=== PATIENT | female | born 1960 | race Hispanic/Latino ===

== ENCOUNTER 2019-07-05 05:10 | Emergency (ER) | payer SELFPAY ==
[2019-07-05 05:24] VITALS: BP 135/75
[2019-07-05] MEDS ORDERED: ACETAMINOPHEN 500 MG TAB PO ONE (06:38)
--- NOTE | 2019-07-05 06:43 | Emergency Department Report ---
[facility] Chief Complaint: Eye Problems Stated Complaint: RT EYE IRRITATION Severity: moderate Symptoms: Yes Eye Itching, Yes Eye Redness, Yes Eye Pain, Yes Mucous Drainage, Yes Purulent Drainage, Yes H/O Allergic Rhinitis, No Blurred Vision (photophobia ), No Preceding URI, No Contact Lens Use, No Trauma, No Fever, No Headache Other History: pt state pink eye x 1 week, not improved with otc eye drops, now with photophobia, pt denies fall injury or trauma, pt has hx of conjuntivitis similar is this episode in past. ED Review of Systems ROS: Stated complaint: RT EYE IRRITATION Other details as noted in HPI Constitutional: denies: chills, fever Eyes: eye pain, eye discharge. denies: vision change ENT: denies: ear pain, throat pain, congestion Respiratory: denies: cough, shortness of breath, wheezing Cardiovascular: as per HPI Endocrine: no symptoms reported Gastrointestinal: denies: abdominal pain, nausea, diarrhea Genitourinary: denies: urgency, dysuria, discharge Musculoskeletal: denies: back pain, joint swelling, arthralgia Skin: denies: rash, lesions Neurological: denies: headache, weakness, paresthesias Psychiatric: denies: anxiety, depression Hematological/Lymphatic: denies: easy bleeding, easy bruising ED Past Medical Hx - Past Medical History Previous Medical History?: No - Surgical History Additional Surgical History: Broken nose repair, Right thumb repair - Social History Smoking Status: Current Every Day Smoker Substance Use Type: None - Medications Home Medications: Home Medications Medication Instructions Recorded Confirmed Last Taken Type cephALEXin [Keflex] 500 mg PO BID #20 capsule 06/22/13 06/28/13 Unknown Rx Ibuprofen [Motrin 800 MG tab] 800 mg PO TID PRN #25 tablet 01/19/16 Unknown Rx Sulfamethoxazole/Trimethoprim 1 each PO BID #20 tablet 01/19/16 Unknown Rx [Bactrim DS TAB] traMADol [Ultram] 50 mg PO Q6HR PRN #20 tablet 01/19/16 Unknown Rx Acetaminophen [Acetaminophen TAB] 1,000 mg PO Q6HR PRN #30 tablet 07/05/19 Unknown Rx Ketotifen Fumarate [Zaditor] 1 drop OP BID #5 ml 07/05/19 Unknown Rx Ofloxacin 0.3% [Ocuflox 0.3% opth] 2 drops OP Q3HR #1 bottle 07/05/19 Unknown Rx [facility] Exam - Exam General: Vital signs noted. No distress. Alert and acting appropriately. Eye Exam: Right Injection, Right Mucous Discharge, Right Purulent Discharge, Right Photophobia, Both EOMI, Neither Chemosis, Neither Abnormal Pupil, Neither Eye Foreign Body, Neither Lid Foreign Body HEENT: No Nasal Congestion, No Pharyngeal Erythema Remainder of HEENT: Normal Lungs: Yes Clear Lung Sounds, Yes Good Air Exchange, No Wheezes, No Stridor, No Cough, No Nasal Flaring, No Retractions, No Use of Accessory Muscles ED Course Vital Signs 07/05/19 05:15 Temperature 98.2 F Pulse Rate 107 H Respiratory 18 Rate Blood Pressure 135/75 O2 Sat by Pulse 97 Oximetry ED Medical Decision Making - Medical Decision Making eye irrigated with 10 cc sterile saline noted purulent drainage, tetracaine drop x 2, pain is relieved , plan, cipro ophthal, zaditor, tylenol, follow up with ophthalmology today or tomorrow, pt verbalized agreement and understanding of same. pt for dc to home in stable condition at this time. Critical care attestation.: If time is entered above; I have spent that time in minutes in the direct care of this critically ill patient, excluding procedure time. ED Disposition Clinical Impression: Conjunctivitis Qualifiers: Conjunctivitis type: acute Acute conjunctivitis type: bacterial Laterality: right Qualified Code(s): H10.31 - Unspecified acute conjunctivitis, right eye Disposition: DC-01 TO HOME OR SELFCARE Is pt being admited?: No Does the pt Need Aspirin: No Condition: Stable Instructions: Conjunctivitis (ED) Prescriptions: Acetaminophen [Acetaminophen TAB] 1,000 mg PO Q6HR PRN #30 tablet PRN Reason: pain Ofloxacin 0.3% [Ocuflox 0.3% opth] 2 drops OP Q3HR #1 bottle Ketotifen Fumarate [Zaditor] 1 drop OP BID #5 ml Referrals: TRISTEN RAIN MD [Primary Care Provider] - 3-5 Days MOOSE BAZZI MD [Staff Physician] - 3-5 Days Forms: Work/School Release Form(ED) Time of Disposition: 06:50
== END 2019-07-05 07:00 | disposition home or self-care (01) ==
LOC: ED 05:10
DX: H10.9 Unspecified conjunctivitis (principal); F17.200 Nicotine dependence, unspecified, uncomplicated; Z98.890 Other specified postprocedural states; Z79.899 Other long term (current) drug therapy

== ENCOUNTER 2019-11-01 06:38 | Emergency (ER) | payer SELFPAY ==
[2019-11-01 06:43] VITALS: BP 167/75
--- NOTE | 2019-11-01 09:43 | Emergency Department Report ---
- General Chief complaint: Animal Bite Stated complaint: POSS INSECT BITE Time Seen by Provider: 11/01/19 09:34 Source: patient Mode of arrival: Ambulatory Limitations: No Limitations - History of Present Illness MD complaint: insect bite/sting, discoloration -: Gradual, days(s) (5) Location: R[facility] Severity: mild, moderate Consistency: constant Improves with: none Worsens with: none Associated symptoms: denies other symptoms Treatments Prior to Arrival: none - Related Data Previous Rx's Medication Instructions Recorded Last Taken Type cephALEXin [Keflex] 500 mg PO BID #20 capsule 06/22/13 Unknown Rx Ibuprofen [Motrin 800 MG tab] 800 mg PO TID PRN #25 tablet 01/19/16 Unknown Rx Sulfamethoxazole/Trimethoprim 1 each PO BID #20 tablet 01/19/16 Unknown Rx [Bactrim DS TAB] traMADoL [Ultram] 50 mg PO Q6HR PRN #20 tablet 01/19/16 Unknown Rx Acetaminophen [Acetaminophen TAB] 1,000 mg PO Q6HR PRN #30 tablet 07/05/19 Unk nown Rx Ketotifen Fumarate [Zaditor] 1 drop OP BID #5 ml 07/05/19 Unknown Rx Ofloxacin 0.3% [Ocuflox 0.3% opth] 2 drops OP Q3HR #1 bottle 07/05/19 Unknown Rx Mupirocin [Bactroban 2%] 1 applic TP TID #1 tube 11/01/19 Unknown Rx Sulfamethoxazole/Trimethoprim 1 each PO BID #20 tablet 11/01/19 Unknown Rx [Bactrim DS TAB] cephALEXin [Keflex] 500 mg PO Q6HR #40 capsule 11/01/19 Unknown Rx Allergies Allergy/AdvReac Type Severity Reaction Status Date / Time No Known Allergies Allergy Unverified 06/28/13 07:15 Abscess Boil HPI - HPI Chief Complaint: Animal Bite Stated Complaint: POSS INSECT BITE Time Seen by Provider: 11/01/19 09:34 History: Yes Insect Bite (Suspects spider bite) HPI: 59-year-old female with a swelling to the right lower extremity with mild pain and a wound with no drainage presents emergency department for further evaluation and treatment options. No no treatment [id number] was attempted reports no fever chills or sweats no chest pain palpitations no nausea or vomiting no abdominal pain Home Medications: Previous Rx's Medication Instructions Recorded Last Taken Type cephALEXin [Keflex] 500 mg PO BID #20 capsule 06/22/13 Unknown Rx Ibuprofen [Motrin 800 MG tab] 800 mg PO TID PRN #25 tablet 01/19/16 Unknown Rx Sulfamethoxazole/Trimethoprim 1 each PO BID #20 tablet 01/19/16 Unknown Rx [Bactrim DS TAB] traMADoL [Ultram] 50 mg PO Q6HR PRN #20 tablet 01/19/16 Unknown Rx Acetaminophen [Acetaminophen TAB] 1,000 mg PO Q6HR PRN #30 tablet 07/05/19 Unknown Rx Ketotifen Fumarate [Zaditor] 1 drop OP BID #5 ml 07/05/19 Unknown Rx Ofloxacin 0.3% [Ocuflox 0.3% opth] 2 drops OP Q3HR #1 bottle 07/05/19 Unknown Rx Mupirocin [Bactroban 2%] 1 applic TP TID #1 tube 11/01/19 Unknown Rx Sulfamethoxazole/Trimethoprim 1 each PO BID #20 tablet 11/01/19 Unknown Rx [Bactrim DS TAB] cephALEXin [Keflex] 500 mg PO Q6HR #40 capsule 11/01/19 Unknown Rx Allergies/Adverse Reactions: Allergies Allergy/AdvReac Type Severity Reaction Status Date / Time No Known Allergies Allergy Unverified 06/28/13 07:15 ED Review of Systems ROS: Stated complaint: POSS INSECT BITE Other details as noted in HPI ED Past Medical Hx - Past Medical History Previous Medical History?: No - Surgical History Past Surgical History?: Yes Additional Surgical History: Broken nose repair, Right thumb repair - Social History Smoking Status: Current Every Day Smoker - Medications Home Medications: Home Medications Medication Instructions Recorded Confirmed Last Taken Type cephALEXin [Keflex] 500 mg PO BID #20 capsule 06/22/13 06/28/13 Unknown Rx Ibuprofen [Motrin 800 MG tab] 800 mg PO TID PRN #25 tablet 01/19/16 Unknown Rx Sulfamethoxazole/Trimethoprim 1 each PO BID #20 tablet 01/19/16 Unknown Rx [Bactrim DS TAB] traMADoL [Ultram] 50 mg PO Q6HR PRN #20 tablet 01/19/16 Unknown Rx Acetaminophen [Acetaminophen TAB] 1,000 mg PO Q6HR PRN #30 tablet 07/05/19 Unknown Rx Ketotifen Fumarate [Zaditor] 1 drop OP BID #5 ml 07/05/19 Unknown Rx Ofloxacin 0.3% [Ocuflox 0.3% opth] 2 drops OP Q3HR #1 bottle 07/05/19 Unknown Rx Mupirocin [Bactroban 2%] 1 applic TP TID #1 tube 11/01/19 Unknown Rx Sulfamethoxazole/Trimethoprim 1 each PO BID #20 tablet 11/01/19 Unknown Rx [Bactrim DS TAB] cephALEXin [Keflex] 500 mg PO Q6HR #40 capsule 11/01/19 Unknown Rx ED Physical Exam - General Limitations: No Limitations General appearance: alert, in no apparent distress - Head Head exam: Present: atraumatic, normocephalic - Eye Eye exam: Present: normal appearance, PERRL, EOMI - ENT ENT exam: Present: mucous membranes moist - Neck Neck exam: Present: normal inspection - Respiratory Respiratory exam: Present: normal lung sounds bilaterally. Absent: respiratory distress - Cardiovascular Cardiovascular Exam: Present: regular rate, normal rhythm. Absent: systolic murmur, diastolic murmur, rubs, gallop - GI/Abdominal GI/Abdominal exam: Present: soft, normal bowel sounds - Extremities Exam Extremities exam: Present: normal inspection, tenderness. Absent: pedal edema, calf tenderness - Expanded Lower Extremity Exam Right Lower Leg exam: Present: tenderness, swelling, ecchymosis, erythema. Absent: Gurmeet's sign Neuro vascular tendon exam: Present: no vascular compromise 1 - Wound 2.5 cm in diameter with circumferential cellulitis noted pulses 2+ capillary refill is brisk - Back Exam Back exam: Present: normal inspection - Neurological Exam Neurological exam: Present: alert, oriented X3 - Psychiatric Psychiatric exam: Present: normal affect, normal mood - Skin Skin exam: Present: warm, dry, intact, normal color. Absent: rash ED Course Vital Signs 11/01/19 06:42 Temperature 98.0 F Pulse Rate 109 H Respiratory 16 Rate Blood Pressure 167/75 O2 Sat by Pulse 97 Oximetry Critical care attestation.: If time is entered above; I have spent that time in minutes in the direct care of this critically ill patient, excluding procedure time. ED Disposition Clinical Impression: Cellulitis of right lower extremity without foot Disposition: DC-01 TO HOME OR SELFCARE Is pt being admited?: No Does the pt Need Aspirin: No Condition: Stable Instructions: Cellulitis (ED) Additional Instructions: Please be sure to follow-up for wound reevaluation in 2 days Prescriptions: Sulfamethoxazole/Trimethoprim [Bactrim DS TAB] 1 each PO BID #20 tablet Mupirocin [Bactroban 2%] 1 applic TP TID #1 tube cephALEXin [Keflex] 500 mg PO Q6HR #40 capsule Referrals: [facility] [Provider Group] - 3-5 Days
== END 2019-11-01 10:21 | disposition home or self-care (01) ==
LOC: ED 06:38
DX: L03.115 Cellulitis of right lower limb (principal); F17.200 Nicotine dependence, unspecified, uncomplicated; Z79.899 Other long term (current) drug therapy; Z98.890 Other specified postprocedural states
CPT/HCPCS: 82962; 99283